=== PATIENT | female | born 1965 | race Caucasian/White ===

== ENCOUNTER 2017-08-25 18:51 | Emergency (ER) | payer OTHER ==
[~2017-08-25] VITALS: Ht 162.5 cm; Wt 77.1 kg
[~2017-08-25 18:51] MED LIST: DYAZIDE 25 MG-31 CAP PO; EPI-PEN1 MG/ML MR; LOSARTAN POTASS1 TA5 PO; MEDROL DOSEPAK4 MG PO; OMEPRAZOLE40 MG PO
== END 2017-08-25 20:19 | disposition home or self-care (01) ==
LOC: ED 18:51
DX: S90.32XA Contusion of left foot, initial encounter (principal); Z88.1 Allergy status to other antibiotic agents; Z79.899 Other long term (current) drug therapy; W22.8XXA Striking against or struck by other objects, initial encounter; Y93.89 Activity, other specified; Y92.89 Other specified places as the place of occurrence of the external cause; Y99.8 Other external cause status

== ENCOUNTER → 2017-09-09 | Outpatient (CLI) | payer OTHER | END | disposition home or self-care (01) | LOC: RAD 19:06 | DX: M48.061 Spinal stenosis, lumbar region without neurogenic claudication (principal); M43.16 Spondylolisthesis, lumbar region ==

== ENCOUNTER → 2017-10-14 | Outpatient (CLI) | payer OTHER ==
[2017-10-14 13:21] LABS: ALBUMIN 3.8 gm/dl (3.1-4.5); ALKALINE PHOSPHATASE 103 U/L (45-117); BUN 13 mg/dl (7-24); CHLORIDE 104 mmol/L (98-107); CHOLESTEROL 235 mg/dL (<200); CREATININE 0.79 mg/dL (0.55-1.02); HDL CHOLESTEROL 54 mg/dl (40-60); LDL CHOLESTEROL 108 mg/dL (9-159); POTASSIUM 3.9 mmol/L (3.5-5.1); SGOT/AST 21 IU/L (3-35); SGPT/ALT 25 U/L (12-78); SODIUM 140 mmol/L (136-145); TOTAL PROTEIN 7.3 gm/dL (6.4-8.2); TRIGLYCERIDES 367 mg/dl (<150); VLDL CHOLESTEROL 73 mg/dL (6-40)
== END | disposition home or self-care (01) ==
LOC: LAB 12:17
PROVIDERS: Physician Assistant Medical
DX: E78.1 Pure hyperglyceridemia (principal); E11.9 Type 2 diabetes mellitus without complications

== ENCOUNTER → 2019-06-03 | Outpatient (CLI) | payer OTHER ==
[2019-06-03 17:02] LABS: BUN 13 mg/dl (7-24)
== END | disposition home or self-care (01) ==
LOC: LAB 16:05
PROVIDERS: Physician Assistant Medical
DX: Z01.812 Encounter for preprocedural laboratory examination (principal)

== ENCOUNTER 2023-11-24 10:50 | Emergency (ER) | payer OTHER ==
[~2023-11-24] VITALS: Ht 162.5 cm; Wt 72.6 kg
[2023-11-24] MEDS ORDERED: GABAPENTIN 100 MG CAP PO ONE (15:00)
[2023-11-24] MEDS ORDERED: NEURONTIN100 MG PO (15:34)
== END 2023-11-24 14:22 | disposition home or self-care (01) ==
LOC: ED 10:50
DX: G89.18 Other acute postprocedural pain (principal); M79.2 Neuralgia and neuritis, unspecified; Z88.1 Allergy status to other antibiotic agents; Z98.51 Tubal ligation status; Z98.890 Other specified postprocedural states